=== PATIENT | male | born 1945 | race Caucasian/White ===

== ENCOUNTER 2022-12-08 12:38 | Emergency (ER) | payer MEDICARE, MEDICAID, SELFPAY ==
[2022-12-08 12:53] VITALS: BP 147/60; PULSE 62; RESP 20; TEMP 36.6; O2SAT 94
--- NOTE | 2022-12-08 13:05 | ED.SKABFB ---
HPI - Skin/Abscess/Foreign Bdy General Chief complaint: Skin/Abscess/Foreign Body Stated complaint: left knee catching and rash Time Seen by Provider: 12/08/22 13:09 Source: patient and RN notes reviewed Mode of arrival: ambulatory Limitations: no limitations History of Present Illness HPI narrative: 77-year-old male presents with concern for a mildly itchy rash on his left lower leg for 5-6 days. He also reports in the last 2 days he began having left anterior knee tenderness and a ?catching? when he walks. He denies pain at rest. Denies fever, aches, chills, sweats. Denies injury to the knee MD complaint: rash Related Data Home Medications Medication Instructions Recorded Confirmed amlodipine 2.5 mg tablet 2.5 mg PO DAILY 12/08/22 12/08/22 atorvastatin 20 mg tablet 20 mg PO DAILY 12/08/22 12/08/22 carvedilol 12.5 mg tablet 12.5 mg PO BID 12/08/22 12/08/22 lisinopril 10 mg tablet 10 mg PO DAILY 12/08/22 12/08/22 metformin 500 mg tablet 500 mg PO DAILY 12/08/22 12/08/22 paroxetine HCl 20 mg tablet 20 mg PO DAILY 12/08/22 12/08/22 tamsulosin 0.4 mg capsule 0.4 mg PO DAILY 12/08/22 12/08/22 Allergies Allergy/AdvReac Type Severity Reaction Status Date / Time No Known Allergies Allergy Verified 12/08/22 13:06 Review of Systems Review of Systems: CONSTITUTIONAL: Denies malaise, chills, sweats, or fever. EYES: Denies redness, or discharge. ENT: Denies rhinorrhea, congestion, swollen lips, swollen tongue CARDIOVASCULAR: Denies chest pain, palpitations, or edema. RESPIRATORY: Denies cough or dyspnea. GASTROINTESTINAL: Denies abdominal pain, nausea, vomiting SKIN: Reports mild itchy rash to left anterior knee MUSCULOSKELETAL: Reports left knee pain NEUROLOGIC: Denies headache. All systems reviewed & are unremarkable except as noted in HPI and below PMFSH Comments At time of signature, agree with nursing past medical, surgical, social and family history. There is no relevant family history pertinent to the presenting complaint Exam Narrative: GENERAL: Well-appearing, well-nourished, and in no acute distress. HEAD: Normocephalic, atraumatic. EYES: PERRLA, conjunctivae clear, and EOMI. ENT: Mucous membranes moist. Oropharynx without edema, erythema or lesions. NECK: Supple. No lymphadenopathy CHEST: Clear to auscultation. No respiratory distress. HEART: Regular rate and rhythm. SKIN: Warm, dry. Approximately 15 cm x 5 cm slightly raised erythematous fine papular rash noted to the left lower leg, small patch of similar rash in the right lower leg Musc: No left knee swelling, erythema, edema, induration noted, grossly normal range of motion. NEURO: Alert and oriented x3. PSYCH: Normal mood and affect Course Course Emergency Course: Patient is aware of diagnosis, understands and agrees to treatment plan. Anticipatory guidance given. Patient agrees to follow-up as directed and is aware of reasons to seek care at the emergency department. Portions of this record may have been created with voice recognition software Level of Care: Express Care Visit Vital Signs Vital signs: Vital Signs Temperature 97.8 F 12/08/22 12:53 Pulse Rate 62 12/08/22 12:53 Respiratory Rate 20 12/08/22 12:53 Blood Pressure 147/60 H 12/08/22 12:53 Pulse Oximetry 94 12/08/22 12:53 Temperature 97.8 F 12/08/22 12:53 Pulse Rate 62 12/08/22 12:53 Respiratory Rate 20 12/08/22 12:53 Blood Pressure 147/60 H 12/08/22 12:53 Pulse Oximetry 94 12/08/22 12:53 Reviewed. MDM - Skin/Abscess/Foreign Bdy MDM Narrative Medical decision making narrative: Exam findings show no acute concerns or changes; patient is non-toxic appearing and is in no distress. Patient is appropriate for outpatient treatment and follow-up. Critical Care Time Critical Care Time Critical Care Time: No Discharge Plan Discharge Clinical Impression: Dermatitis, Knee pain Patient Disposition: Home, Self-Care Conditi
== END 2022-12-08 13:22 | disposition home or self-care (01) ==
PROVIDERS: Emergency Provider Nurse Practitioner; PCP Internal Medicine
DX: L30.9 Dermatitis, unspecified (principal)
CPT/HCPCS: 99213; G0463